=== PATIENT | female | born 1995 | race Caucasian/White ===

== ENCOUNTER 2017-03-06 19:56 | Emergency (ER) | payer OTHER ==
[~2017-03-06] VITALS: Ht 157.5 cm; Wt 54.8 kg
[~2017-03-06 19:56] MED LIST: AMITRIPTYLINE H25 MG PO; BUSPAR5 MG PO; CITALOPRAM HBR20 MG PO; FIORICET,ESG1 TABLET PO; FLEXERIL10 MG PO; FLEXERIL5 MG PO; LEVOTHYROXINE88 MCG PO; LORATADINE10 M2 PO; NAPROSYN500 MG PO; NORTRIPTYLINE H25 MG PO; OXYCODONE HCL5 MG PO; PREDNISONE10 MG PO; ULTRAM50 MG PO; VALIUM5 MG PO; ZOFRAN ODT4 MG PO; ZOFRAN ODT8 MG PO
[2017-03-06] MEDS ORDERED: MOTRIN800 MG PO (22:08)
[2017-03-06 22:17] VITALS: BP 104/60
== END 2017-03-06 22:19 | disposition home or self-care (01) ==
LOC: RME 19:56 → EME 19:56 → RME 22:19
DX: M25.511 Pain in right shoulder (principal); M54.2 Cervicalgia; R20.0 Anesthesia of skin; R68.83 Chills (without fever)
CPT/HCPCS: 72040; 73030; 99281; 99284; J1885

== ENCOUNTER 2017-06-05 22:33 | Emergency (ER) | payer OTHER ==
[~2017-06-05] VITALS: Ht 157.5 cm; Wt 54.8 kg
[~2017-06-05 22:33] MED LIST changes: +MOTRIN800 MG PO
[2017-06-05] MEDS ORDERED: CEFDINIR300 MG PO (23:59)
[2017-06-05] MEDS ORDERED: MOTRIN800 MG PO (23:59)
[2017-06-05] MEDS ORDERED: CIPRODEX OTIC7.5 ML RIGHT EAR (23:59)
[2017-06-06 00:07] VITALS: BP 128/69
== END 2017-06-06 00:09 | disposition home or self-care (01) ==
LOC: RME 22:33 → EME 22:33 → RME 06-06 00:09
DX: H60.91 Unspecified otitis externa, right ear (principal)
CPT/HCPCS: 99281; 99283

== ENCOUNTER 2017-06-16 21:28 | Emergency (ER) | payer OTHER ==
[~2017-06-16] VITALS: Ht 157.5 cm; Wt 52.8 kg
[~2017-06-16 21:28] MED LIST changes: +CEFDINIR300 MG PO; +CIPRODEX OTIC7.5 ML RIGHT EAR
[2017-06-16 21:36] VITALS: BP 120/76
[2017-06-17] MEDS ORDERED: LIDOCAINE700 MG TP (00:57)
[2017-06-17] MEDS ORDERED: TRAMADOL HCL50 MG PO (01:00)
== END 2017-06-17 01:09 | disposition home or self-care (01) ==
LOC: EME 21:28
DX: S39.012A Strain of muscle, fascia and tendon of lower back, initial encounter (principal); X50.9XXA Other and unspecified overexertion or strenuous movements or postures, initial encounter; Y93.89 Activity, other specified
CPT/HCPCS: 72131; 99281; 99283

== ENCOUNTER 2017-10-02 03:32 | Emergency (ER) | payer OTHER ==
[~2017-10-02] VITALS: Ht 157.5 cm; Wt 55.5 kg
[~2017-10-02 03:32] MED LIST changes: +LIDOCAINE700 MG TP; +TRAMADOL HCL50 MG PO
[2017-10-02 04:26] VITALS: BP 131/81
== END 2017-10-02 04:27 | disposition home or self-care (01) ==
LOC: EME 03:32
DX: S03.03XA Dislocation of jaw, bilateral, initial encounter (principal); X58.XXXA Exposure to other specified factors, initial encounter; M26.603 Bilateral temporomandibular joint disorder, unspecified; Z88.5 Allergy status to narcotic agent
CPT/HCPCS: 99281; 99283

== ENCOUNTER 2018-01-09 03:56 | Emergency (ER) | payer OTHER ==
[~2018-01-09] VITALS: Ht 157.5 cm; Wt 56.0 kg
[2018-01-09] MEDS ORDERED: FLEXERIL10 MG PO (04:19)
[2018-01-09 04:35] VITALS: BP 116/79
== END 2018-01-09 04:35 | disposition home or self-care (01) ==
LOC: EME 03:56
DX: S03.03XD Dislocation of jaw, bilateral, subsequent encounter (principal); Z87.891 Personal history of nicotine dependence; Z88.5 Allergy status to narcotic agent; Z91.048 Other nonmedicinal substance allergy status
CPT/HCPCS: 99281; 99283

== ENCOUNTER 2018-01-19 05:46 | Emergency (ER) | payer OTHER ==
[~2018-01-19] VITALS: Ht 157.5 cm; Wt 55.9 kg
[2018-01-19 06:39] VITALS: BP 108/78
== END 2018-01-19 06:40 | disposition home or self-care (01) ==
LOC: EME 05:46
DX: S03.00XA Dislocation of jaw, unspecified side, initial encounter (principal); X50.9XXA Other and unspecified overexertion or strenuous movements or postures, initial encounter; Z87.891 Personal history of nicotine dependence; Z88.5 Allergy status to narcotic agent
CPT/HCPCS: 99281; 99283

== ENCOUNTER 2018-04-28 14:46 | Emergency (ER) | payer OTHER ==
[~2018-04-28] VITALS: Ht 160 cm; Wt 55.2 kg
[2018-04-28] MEDS ORDERED: FLEXERIL10 MG PO (18:03)
[2018-04-28 18:22] VITALS: BP 122/62
== END 2018-04-28 18:23 | disposition home or self-care (01) ==
LOC: EME 14:46 → RME 14:46
DX: M54.9 Dorsalgia, unspecified (principal); V44.5XXA Car driver injured in collision with heavy transport vehicle or bus in traffic accident, initial encounter; Y92.411 Interstate highway as the place of occurrence of the external cause; Z53.29 Procedure and treatment not carried out because of patient's decision for other reasons; Z88.5 Allergy status to narcotic agent; Z88.8 Allergy status to other drugs, medicaments and biological substances; Z91.09 Other allergy status, other than to drugs and biological substances
CPT/HCPCS: 99281; 99284